=== PATIENT | male | born 2000 | race African-American/Black ===

== ENCOUNTER 2022-10-20 15:13 | Emergency (ER) | payer OTHER ==
[~2022-10-20] VITALS: Ht 172.7 cm; Wt 68.8 kg
[2022-10-20 18:34] VITALS: BP 127/76
== END 2022-10-20 18:35 | disposition home or self-care (01) ==
LOC: M ED 15:13
DX: M51.26 Other intervertebral disc displacement, lumbar region (principal); D75.A Glucose-6-phosphate dehydrogenase (G6PD) deficiency without anemia

== ENCOUNTER → 2022-10-23 | Outpatient (CLI) | payer OTHER | LOC: M SOG 10:32 | PROVIDERS: ATTEND Orthopaedic Surgery | DX: M54.50 Low back pain, unspecified (principal) ==

== ENCOUNTER 2022-10-28 23:28 | Emergency (ER) | payer OTHER ==
[~2022-10-28] VITALS: Ht 172.7 cm; Wt 66.0 kg
[2022-10-28 23:28] VITALS: BP 116/70
== END 2022-10-29 03:17 | disposition left against medical advice (07) ==
LOC: M ED 23:28
DX: R07.9 Chest pain, unspecified (principal); Z53.21 Procedure and treatment not carried out due to patient leaving prior to being seen by health care provider

== ENCOUNTER 2023-06-29 01:39 | Emergency (ER) | payer OTHER ==
[2023-06-29 06:00] VITALS: BP 126/72; TEMP 99.6; O2SAT 97
== END 2023-06-29 06:42 | disposition home or self-care (01) ==
LOC: M ED 01:39
DX: S13.4XXA Sprain of ligaments of cervical spine, initial encounter (principal); X58.XXXA Exposure to other specified factors, initial encounter; Y92.89 Other specified places as the place of occurrence of the external cause; Y93.89 Activity, other specified; Y99.8 Other external cause status; U07.1 COVID-19; F17.200 Nicotine dependence, unspecified, uncomplicated

== ENCOUNTER 2023-08-31 08:25 | Emergency (ER) | payer OTHER ==
[~2023-08-31] VITALS: Ht 172.7 cm; Wt 65.3 kg
[2023-08-31 13:07] VITALS: BP 110/56; TEMP 98.1; O2SAT 100
== END 2023-08-31 13:09 | disposition home or self-care (01) ==
LOC: M ED 08:25
DX: M51.26 Other intervertebral disc displacement, lumbar region (principal); M51.27 Other intervertebral disc displacement, lumbosacral region; K21.9 Gastro-esophageal reflux disease without esophagitis